=== PATIENT | male | born 1940 | race Caucasian/White ===

== ENCOUNTER 2017-02-21 11:13 | Inpatient (IN) | payer OTHER ==
--- NOTE | ~2017-02-21 | CONSULT ---
Radiation Oncology Consult [id number] [place]. [address] NAME: ANKUR TRIMBLE : 41 STATUS : DIS IN PAT#: [id number] AGE: 76 ADM/REG DATE : 02/21/17 MR#: [id number] REPORT SERV DATE: 03/01/17 DICTATED BY: EUGENE LENNON DATE: 02/27/17 REPORT STATUS : Draft TRANSCRIBED BY: MODYue DATE: 02/27/17 RADIATION ONCOLOGY CONSULTATION DIAGNOSIS: Stage IV T4 N3 M1b left lower lobe non-small cell lung cancer. HISTORY OF PRESENT ILLNESS: This is a very pleasant 76-year-old male, who presented with recurrent pneumonias. Ultimately, imaging was obtained and demonstrated left lower lobe mass. The patient underwent a PET-CT which demonstrated left lower lobe mass with mediastinal adenopathy in a single oligometastasis to the liver. MRI brain was negative. The patient was seen in consultation by Dr. Forman, where he was noted to have severe dysphagia. He has also noted to have a moderate pericardial effusion. He was admitted on 02/21/2017 to expedite his workup with a biopsy. He underwent bronchoscopy yesterday by Dr. Navarro. Pathology is pending. The preliminary pathology is notable for non-small cell lung cancer. He underwent a pericardial window by Dr. Olivas with cytology was negative for malignancy. I am consulted to discuss radiation to his chest. At today's visit, the patient continues to have severe dysphagia. He is able to keep down mostly liquids. He has lost a fair amount of weight since this began. He continues to have dyspnea on exertion. He denies shortness of breath at rest. He denies any hemoptysis or chest pain. He denies headaches, new neurologic symptoms, or bone pain. He reports his bowel and bladder are within normal limits. He denies fevers, chills, night sweats. PAST MEDICAL HISTORY: 1. History of tobacco abuse. 2. COPD. 3. CAD. 4. Hyperlipidemia. 5. Hypertension. REVIEW OF SYSTEMS: Notable for 10 pound weight loss over the past several months. Remainder of review of systems is negative. Pertinent positives are noted in the HPI. MEDICATIONS: Medication reconciliation has been reviewed and discussed. Please refer to EMR. ALLERGIES: NO KNOWN DRUG ALLERGIES. SOCIAL HISTORY: The patient is retired and does odd jobs including carpentry work. He smokes a pack per day for 60 years. He denies alcohol or illicit drug use. He quit smoking last year. FAMILY HISTORY: Family history is notable for lung cancer. His father of heart disease. Radiation Oncology Consult [address] [address] NAME: ANKUR TRIMBLE : 41 STATUS : DIS IN PAT#: [id number] AGE: 76 ADM/REG DATE : 02/21/17 MR#: [id number] REPORT SERV DATE: 03/01/17 DICTATED BY: EUGENE LENNON DATE: 02/27/17 REPORT STATUS : Draft TRANSCRIBED BY: JORDAN DATE: 02/27/17 PHYSICAL EXAMINATION: ECOG performance status of 2. Pain score 0/10. VITAL SIGNS: Temp 97.5, respirations 20, O2 saturation 99% on room air. GENERAL: Well-developed 76-year-old male accompanied by his . He is lying comfortably in hospital bed. HEENT: Normocephalic. Extraocular movements intact. Moist mucous membranes. LYMPHATICS: No supraclavicular or cervical lymphadenopathy. RESPIRATORY: Nonlabored breathing. No audible wheezing. GI: Soft, nontender, nondistended. EXTREMITIES: No edema. Normal range of motion. NEURO: Cranial nerves intact. Gait within normal limits. PSYCH: Verbalized understanding of our discussion. Demonstrates appropriate insight. IMAGING: I personally reviewed the PET-CT which shows left lower lobe locally advanced non- small cell lung cancer. There was an oligometastases to the liver. PATHOLOGY: Preliminary pathology is notable for a non-small cell lung cancer in the left lower lobe. ASSESSMENT AND PLAN: A 76-year-old male with newly diagnosed oligometastatic stage IV T4 N3 M1 non-small cell lung cancer. I am consulted to discuss radiation. I discussed his two approaches including palliative radiation to his chest to alleviate his esophageal compression. I have discussed the case with Dr. Forman. We also offered an aggressive approach with chemoradiation to the left lower lobe to a full course. If he has a positive response, we would consider aggressive therapy locally to the liver. I discussed both of these options with the patient. I discussed the details and logistics of daily radiation including potential, acute, and long-term toxicities. After a very thorough discussion of the benefits and risks, including but not limited to, esophageal stricture and radiation pneumonitis, the patient has agreed to proceed forward. He is in favor of an aggressive approach. I will plan a CT simulation on Saturday in the morning with plans to initiate radiation next Saturday in coordination with Dr. Forman. I appreciate the opportunity to take part in this patient's care. JKENNA/JORDAN Eugene Lennon MD / [id number] CC: Jhonny Navarro M.D. Radiation Oncology Consult [address] [address] NAME: ANKUR TRIMBLE : 41 STATUS : DIS IN PAT#: [id number] AGE: 76 ADM/REG DATE : 02/21/17 MR#: [id number] REPORT SERV DATE: 03/01/17 DICTATED BY: EUGENE LENNON DATE: 02/27/17 REPORT STATUS : Draft TRANSCRIBED BY: JORDAN DATE: 02/27/17 Elsy Aguayo MD James Headrick Jr., M.D. Benjamin R Nadeau, MD
--- NOTE | ~2017-02-21 | HP ---
History And Physical [id number] [facility] [place]. [address] NAME: ANKUR TRIMBLE : 41 STATUS : ADM IN PAT#: [id number] AGE: 76 ADM/REG DATE : 02/21/17 MR#: [id number] REPORT SERV DATE: 02/21/17 DICTATED BY: KEL SCHNEIDER DATE: 02/21/17 REPORT STATUS : Draft TRANSCRIBED BY: MODL DATE: 02/21/17 DATE OF ADMISSION: 02/21/2017 CHIEF COMPLAINT: Brought in from the office for multiple issues including dysphagia and tachycardia. HISTORY OF PRESENT ILLNESS: This is a very pleasant 76-year-old male, who has been following with Dr. Forman for workup of a left lower lobe lung mass. He previously had recurrent pneumonias and ultimately imaging showed a left lower lobe lung mass. He had a PET scan last week, which was consistent with stage IV disease with mediastinal adenopathy and liver metastases. He also had an echocardiogram which showed an EF of 50%, although he did have a heart rate in the 170s at that time. Over the past several days, he has had worsening of dysphagia. He says when he tries to swallow food it does get stuck. It is painful when it gets stuck and he has been vomiting up what he has been taking in including liquids over the past two days. He denies fevers, chills, any issues with urination including dysuria. He denies diarrhea. He had a bowel movement yesterday. He has had difficulty taking in any p.o. Had two sips of coffee this morning and has been noted some complaints of weakness per family. REVIEW OF SYSTEMS: The patient has had about a 10-pound weight loss in the past few months. Full review of systems was obtained and is negative with the exception of above HPI. PAST MEDICAL HISTORY: Includes coronary artery disease with a stent placed in 1998, hyperlipidemia, hypertension. SOCIAL HISTORY: He is a previous smoker, although does not actively smoke. His is present. He does not drink alcohol regularly. HOME MEDICATION: List is pending at this time, although he has not been able to swallow pills. FAMILY HISTORY: Denies any history of lung disease or cancer. PHYSICAL EXAMINATION: VITAL SIGNS: Heart rate is currently 131 with atrial fibrillation on EKG, temperature 97.5, respiratory rate 22, saturating 99% on room air, blood pressure 128/77. GENERAL: This is a very pleasant male, who is 76 years old, who appears stated age. He is in no acute distress. Alert and oriented x3, although mildly hard of hearing. HEENT: Extraocular muscles are intact. Sclerae are anicteric. Pupils equal, round, and reactive to light. NECK: Supple. LUNGS: Clear to auscultation bilaterally, although there are some mild rales at the left lower lobe. He does not have any expiratory wheezing. He has normal effort. CARDIAC: Irregularly irregular with tachycardia in the 130s. He has no appreciable murmur. ABDOMEN: Soft, nontender, and nondistended with no palpable mass. History And Physical [address] [address] NAME: ANKUR TRIMBLE : 41 STATUS : ADM IN [facility]#: [id number] AGE: 76 ADM/REG DATE : 02/21/17 MR#: [id number] REPORT SERV DATE: 02/21/17 DICTATED BY: KEL SCHNEIDER DATE: 02/21/17 REPORT STATUS : Draft TRANSCRIBED BY: JORDAN DATE: 02/21/17 EXTREMITIES: Lower extremities are warm and well perfused with no edema. NEURO: Cranial nerves 2 through 12 are grossly intact. Face is symmetric. Tongue is midline. PSYCHIATRIC: The patient is cooperative and appropriate. LABORATORY DATA: Pending at this time. Recent imaging includes a PET-CT from 02/14/2017, which shows impression findings consistent with, 1. Stage IV lung cancer, large 7.2 cm central left hilar obstructing FDG-avid mass involving both the upper and lower hilum causing severe thinning and attenuation of the left pulmonary artery and central upper and lower lobe bronchi consistent with primary lung carcinoma. 2. 3.4 x 3.5, mass-like consolidation in the left lateral lung base which may represent a component of carcinoma versus infection. There is adjacent 4.3 x 3.0 necrotic consolidation in the left lower central lobe with small left pleural effusion. 3. FDG-avid julianna spread of disease involving right paratracheal and subcarinal station consistent with N3 disease. No supraclavicular adenopathy. 4. Solitary distant metastases in the medial left liver. 5. Incidentals include three-vessel coronary artery disease and/or stenting, small pericardial effusion, naoteacr-[id number]-mtwsgk aortoiliac atherosclerotic disease, mild subpleural pulmonary fibrosis. ASSESSMENT AND PLAN: This is a 76-year-old male with suspected stage IV lung carcinoma and recent dysphagia, admitted with atrial fibrillation and dehydration. 1. Stage IV lung cancer. The patient will undergo bronchoscopy with Dr. Navarro today for definitive diagnosis. Likely the patient will need Radiation Oncology consultation. Once biopsy has been obtained, Dr. Forman will follow along with us to continue workup. 2. Dysphagia. Given his bulk of disease in his mediastinum concerning for possible obstruction, we will consult GI given his inability to keep anything down. The patient may benefit from PEG tube until radiation has time to work. In the interim, we will provide IV fluids. 3. Atrial fibrillation with rapid ventricular response. The patient will be moved to telemetry bed. Diltiazem drip has been ordered. Dr. Coburn, Mr. Trimble's gasser machine operator has been notified. 4. Medial pericardial effusion without evidence of tamponade on echocardiogram. Again, Dr. Coburn can weigh in on if any further imaging needs to be obtained. 5. History of coronary artery disease, hyperlipidemia, and hypertension. We will continue the patient's home medication once an accurate list has been obtained. 6. Possible obstruction due to lung mass. We will have a bronchoscopy with Dr. Navarro and may need radiation therapy to help with this. 7. DVT prophylaxis will be held at this time pending procedures. 8. Code status. The patient wishes to be a limited code status. He does not want intubation or CPR, although he would be willing to try noninvasive ventilation. History And Physical [address] [address] NAME: ANKUR TRIMBLE Buzz : 41 STATUS : ADM IN PAT#: [id number] AGE: 76 ADM/REG DATE : 02/21/17 MR#: [id number] REPORT SERV DATE: 02/21/17 DICTATED BY: KEL SCHNEIDER DATE: 02/21/17 REPORT STATUS : Draft TRANSCRIBED BY: JORDAN DATE: 02/21/17 HOUSTON/JORDAN Kel Schneider MD / [id number] CC: Marina Florez Wendy A
--- NOTE | ~2017-02-21 | EGD ---
EGD REPORT [facility] [address] [address] NAME: KE TRIMBLE : 41 STATUS : ADM IN PAT#: [id number] AGE: 76 ADM/REG DATE : 02/21/17 MR#: [id number] REPORT SERV DATE: 02/26/17 DICTATED BY: RADHA STEVENS DATE: 02/26/17 REPORT STATUS : Draft TRANSCRIBED BY: [facility] DATE: 02/26/17 Pulmonology Patient Name: Ke Trimble. Procedure Date: 02/26/2017 12:49 PM Date of : 1940 Attending MD: ROSARIO STEVENS MD Procedure Date No Time: 02/26/2017 Procedure: EBUS Indications: Suspected Stage IV lung cancer Providers: ROSARIO STEVENS MD Referring MD: FLORI VICKERS JR., MD Medicines: Lidocaine 2% 20 mL Complications: No immediate complications Procedure: Pre-Anesthesia Assessment: - ASA Grade Assessment: III - A patient with severe systemic disease. - A History and Physical has been performed. Patient meds and allergies have been reviewed. The risks and benefits of the procedure and the sedation options and risks were discussed with the patient. All questions were answered and informed consent was obtained. Patient identification and proposed procedure were verified prior to the procedure by the physician and the nurse in the pre-procedure area in the procedure room. Mental Status Examination: alert and oriented. Airway Examination: normal oropharyngeal airway. CV Examination: RRR, no murmurs, no S3 or S4. ASA Grade Assessment: IV - A patient with severe systemic disease that is a constant threat to life. After reviewing the risks and benefits, the patient was deemed in satisfactory condition to undergo the procedure. The anesthesia plan was to use general anesthesia. Immediately prior to administration of medications, the patient was re-assessed for adequacy to receive sedatives. The heart rate, respiratory rate, oxygen saturations, blood pressure, adequacy of pulmonary ventilation, and response to care were monitored throughout the procedure. The physical status of the patient was re-assessed after the procedure. After obtaining informed consent, the Bronchoscope was introduced through the mouth, via the endotracheal tube (the patient was intubated for the procedure) and advanced to the tracheobronchial tree. the BF [id number] was introduced through the and advanced to the. Findings: The endotracheal tube is in good position. The visualized portion of the EGD REPORT [address] [address] NAME: KE TRIMBLE : 41 STATUS : ADM IN [facility]#: [id number] AGE: 76 ADM/REG DATE : 02/21/17 MR#: [id number] REPORT SERV DATE: 02/26/17 DICTATED BY: RADHA STEVENS DATE: 02/26/17 REPORT STATUS : Draft TRANSCRIBED BY: [employer] DATE: 02/26/17 trachea is of normal caliber. The bryan is sharp. The tracheobronchial tree was examined to at least the first subsegmental level. LLL tumor noted see pictures EBUS TBNA of lymph node level 7 x 6 passes for cytology EBUS TBNA of left lung mass x 6 passes for cytology Brushings were obtained in the left mainstem bronchus of the lung and sent for routine cytology. One sample was obtained. Endobronchial biopsies were performed in the left mainstem bronchus of the lung using a forceps and sent for histopathology examination. Two samples were obtained. Bronchoalveolar lavage was performed in the left lower lobe of the lung and sent for routine cytology. 30 mL of fluid were instilled. 20 mL were returned. The return was blood-tinged. Impression: Rapid On-Site Evaluation (BRYAN): Preliminary cytology is POSITIVE for malignancy, non small cell lung cancer. (final results are pending). Recommendation: - Await test results. - Chest X-ray post-procedure. - Patient to go intubated to Interventional Radiology for PEG tube placement. Attending Participation: I personally performed the entire procedure. ROSARIO STEVENS MD 02/26/2017 2:01 PM This report has been signed electronically. Number of Addenda: 0 Note Initiated On: 02/26/2017 12:49 PM [address] [address]
--- NOTE | ~2017-02-21 | DS ---
Discharge Summary [facility] [address] [place]. [address] NAME: ANKUR TRIMBLE : 41 STATUS : DIS IN PAT#: [id number] AGE: 76 ADM/REG DATE : 02/21/17 MR#: [id number] REPORT SERV DATE: 03/01/17 DICTATED BY: FLORI PARADA II DATE: 02/28/17 REPORT STATUS : Draft TRANSCRIBED BY: MODL DATE: 02/28/17 ADMISSION DATE: 02/21/2017 DISCHARGE DATE: 02/28/2017 DISCHARGE DIAGNOSES: 1. Presumed metastatic lung cancer. 2. Ulcerated esophageal stricture amenable to dilatation with dysphagia. 3. Paroxysmal atrial fibrillation. 4. Pericardial effusion, status post window. 5. Coronary artery disease, status post stent. CONSULTS: 1. Halie Olivas M.D., with Cardiology. 2. Flori Olivas M.D., with Cardiothoracic Surgery. 3. Phil Mendoza MD, with GI. 4. Dr. Estevez with Surgery. 5. Jhonny Navarro M.D. PROCEDURES: 1. Transesophageal echocardiogram with subxiphoid pericardial window with pericardial biopsy and local nerve block by Dr. Olivas. 2. Upper endoscopy showing ulcerated esophageal stricture by Dr. Mendoza. 3. Bronchoscopy with EBUS by Dr. Navarro. BRIEF HISTORY OF PRESENT ILLNESS: The patient is a 76-year-old male with the above history who presented to [facility] due to dysphagia and tachycardia. For detailed history and physical examination, please see Dr. Schneider's note from 02/21/2017. HOSPITAL COURSE: On admission, the patient was in rapid AFib and Cardiology was consulted. Given the patient's dysphagia, he was started on IV metoprolol and amiodarone drip. This controlled his heart rate quite well. He had a recent echo demonstrated moderate-size pericardial effusion concerning for malignant effusion. So Dr. Olivas was consulted and the patient subsequently underwent DAYSI with subxiphoid pericardial window. The fluid from that actually returned negative for malignancy. GI was consulted for an upper endoscopy which showed the ulcerated esophageal stricture which was not amenable to dilatation. Given the patient's dysphagia, the patient was scheduled for PEG. However, GI was unable to do this and Interventional Radiology attempted, however, could not pass an OG tube. So the procedure was aborted. Surgery was consulted for possible surgical PEG. However, by that time, the patient was actually tolerating Ensure, full liquids, and essentially able to maintain an adequate caloric intake. So, Dr. Estevez and Dr. Forman recommended holding off on doing PEG at this point procedure and going forward with chemo and radiation. Dr. Lennon was also consulted and is planning simulation tomorrow and radiation to start next week. The patient will follow with Dr. Forman to initiate chemotherapy as an outpatient next week. The patient's heart rate is stable, back in sinus rhythm, and will be converted over to oral metoprolol and amiodarone. The patient will remain on full-dose aspirin and hold off on anticoagulation at this time. The patient also Discharge Summary [address] [place]. [address] NAME: ANKUR TRIMBLE : 41 STATUS : DIS IN PAT#: [id number] AGE: 76 ADM/REG DATE : 02/21/17 MR#: [id number] REPORT SERV DATE: 03/01/17 DICTATED BY: FLORI PARADA II DATE: 02/28/17 REPORT STATUS : Draft TRANSCRIBED BY: JORDAN DATE: 02/28/17 underwent bronch with EBUS by Dr. Navarro as mentioned above which had gross positive malignancy. Final path is still pending. Overall, the patient is actually doing quite well, considering labs and vitals are stable. So given PEG tube is on hold, we will go ahead and let the patient go home and follow up as an outpatient for further chemo and radiation. DISCHARGE MEDICATIONS: 1. Vitamin C 500 mg p.o. daily. 2. Vitamin E 400 units p.o. daily. 3. Vitamin D 1000 units p.o. daily. 4. Aspirin 325 mg p.o. daily. 5. Pravachol 40 mg p.o. at bedtime. 6. Percocet 5 mg p.o. q.6 p.r.n. 7. Amiodarone 200 mg p.o. daily. 8. Lopressor 12.5 mg p.o. b.i.d. DISCHARGE INSTRUCTIONS: 1. The patient will follow with Dr. Forman next week. 2. The patient will follow up with Dr. Lennon in Radiation Oncology for CT sim on Saturday and to start radiation next week. TYREE/JORDAN Flori Parada II, MD / [id number] CC: Marina Florez
--- NOTE | ~2017-02-21 | OP ---
Record Of Operation [facility] [address] [place]. [address] NAME: ANKUR TRIMBLE : 42 STATUS : ADM IN PAT#: [id number] AGE: 76 ADM/REG DATE : 02/21/17 MR#: [id number] REPORT SERV DATE: 02/21/17 DICTATED BY: FLORI OLIVAS JR. DATE: 02/21/17 REPORT STATUS : Draft TRANSCRIBED BY: MODL DATE: 02/21/17 DATE OF PROCEDURE: 02/21/2017 PREOPERATIVE DIAGNOSES: Metastatic lung cancer with enlarging pericardial effusion and prepericardial tamponade, COPD, atrial fibrillation, and hypertension. POSTOPERATIVE DIAGNOSES: Metastatic lung cancer with enlarging pericardial effusion and prepericardial tamponade, COPD, atrial fibrillation, and hypertension. NAME OF OPERATION: Transesophageal echocardiogram, subxiphoid pericardial window with pericardial biopsy, local nerve block. SURGEON: Flori Olivas M.D. WEB EDITOR: Neptali Nichole. RESIDENT SURGEON: Daron Dickens M.D. ANESTHESIA: General endotracheal. FINDINGS: The patient was noted to have resistance in his distal 3rd of his esophagus. We can get the transesophageal probe down to about 30 cm but could not see the ventricular portions on exam. Only his aorta in the upper portion of the heart. Given the resistance and his swallowing difficulties, we did not push any further. Upon entering the pericardium, it was thin and normal looking. There was serous fluid that was evacuated. There was only about 200 mL within the pericardial space. There was some change in his blood pressure. The fluid was sent for cultures and cytology. The pericardial tissue was sent for permanent analysis. DETAILS OF OPERATION: After adequate general anesthesia, the patient was intubated. A transesophageal echocardiogram was attempted to be performed but was incomplete given the lack of availability getting the scope distal enough of the esophagus. The patient's neck and chest were then prepped and draped routine sterile fashion. A small incision was made overlying the xiphoid process. Dissection was carried down and into the subxiphoid space. The pericardium was identified and opened with a knife. Serous fluid was evacuated. 200 mL was removed. The fluid was sent for cultures and cytology. A section of anterior pericardium was then excised. A 19-[place] Hay drain was placed. The fascia was then closed with interrupted Vicryl sutures. The skin was closed with running monofilament suture. A Dermabond dressing was applied. The procedure was terminated at this point. The patient tolerated the procedure well, was taken back to recovery room in stable condition. CARLY/JORDAN Flori Record Of [address] [facility] [address] NAME: ANKUR TRIMBLE : 42 STATUS : ADM IN PAT#: [id number] AGE: 76 ADM/REG DATE : 02/21/17 MR#: [id number] REPORT SERV DATE: 02/21/17 DICTATED BY: FLORI OLIVAS JR. DATE: 02/21/17 REPORT STATUS : Draft TRANSCRIBED BY: JORDAN DATE: 02/21/17 Deisy Jorgensen M.D. / [id number] CC: Jhonny Navarro M.D.
--- NOTE | ~2017-02-21 | CN ---
Consultation Report [facility] [address] [place]. [address] NAME: ANKUR TRIMBLE : 42 STATUS : ADM IN [facility]#: [id number] AGE: 76 ADM/REG DATE : 02/21/17 MR#: [id number] REPORT SERV DATE: 02/27/17 DICTATED BY: RODOLFO ESTEVEZ DATE: 02/26/17 REPORT STATUS : Draft TRANSCRIBED BY: MODL DATE: 02/26/17 SURGICAL CONSULT NOTE DATE OF CONSULTATION: 02/26/2017 ATTENDING SURGEON: Rodolfo Estevez MD. REASON FOR CONSULT: Dysphagia, request for gastrostomy tube. HISTORY OF PRESENT ILLNESS: The patient is a 76-year-old male, admitted to the hospital on 02/21/2017 of this month with complaint of progressively worsening dysphagia in addition to tachycardia. He has recently undergone workup for a left lung mass which has unfortunately revealed evidence of stage IV disease including liver and mediastinal metastasis. On the 02/21/2017, he underwent a pericardial window by Dr. Olivas, in addition to an EBUS. His pericardial drain has been removed at this point. GI attempted PEG tube placement. However, they found evidence of esophageal obstruction secondary to an ulcerated stricture which was not amenable to dilation. He also has some degree of compression secondary to extrinsic disease as well. Because of this, Interventional Radiology planned to place a PEG tube today, however, an NG tube could not traverse the area of stricture. For that reason, we have been consulted for gastrostomy tube placement. Of note, the patient is DNR/DNI. PAST MEDICAL HISTORY: Includes atrial fibrillation, coronary artery disease. He had stents placed in 1998, hyperlipidemia, hypertension, and left lung cancer. PAST SURGICAL HISTORY: Includes pericardial window on 02/21/[address] Olivas and EBUS on 02/21/2017. MEDICATIONS: Home medications include aspirin, Lotensin, and Pravachol. SOCIAL HISTORY: He is a previous smoker, is not currently smoking. He denies alcohol or recreational drug use. FAMILY HISTORY: He denies history of lung disease or cancer. REVIEW OF SYSTEMS: A 12-point review of systems was obtained and found to be negative aside from that listed in HPI. PHYSICAL EXAMINATION: VITAL SIGNS: The patient is afebrile and hemodynamically stable. He is currently on room air. GENERAL: Alert, pleasant male in no acute distress. HEENT: He has moist mucous membranes. CARDIOVASCULAR: Regular rate with a regular rhythm. PULMONARY: Decreased breath sounds on the left. Consultation Report [place] [address] [facility] [place]. [address] NAME: ANKUR TRIMBLE : 42 STATUS : ADM IN [facility]#: [id number] AGE: 76 ADM/REG DATE : 02/21/17 MR#: [id number] REPORT SERV DATE: 02/27/17 DICTATED BY: RODOLFO ESTEVEZ DATE: 02/26/17 REPORT STATUS : Draft TRANSCRIBED BY: MODYue DATE: 02/26/17 ABDOMEN: Soft, nondistended. He does have a recent pericardial window incision which is healing well. His pericardial drain has been removed. EXTREMITIES: Extremities are perfused. DATA: White blood cell count is 10, hematocrit is 39, platelets 182, creatinine 0.8, INR 1.2. ASSESSMENT AND PLAN: This is a 76-year-old male with stage IV lung cancer and dysphagia with esophageal obstruction. Gastrostomy seems appropriate in this situation. He will need to undergo general anesthesia for this procedure so any medical optimization prior to the operating room will greatly be appreciated. I recommend hold all anticoagulants including aspirin. We will likely plan for the operating room on . The patient has been discussed with Dr. Estevez. DICTATED BY: Ele Wade MD JR/JORDAN Rodolfo Estevez MD / [id number] CC: Marina Florez
--- NOTE | ~2017-02-21 | CN ---
Consultation Report [facility] [address] [place]. [address] NAME: ANKUR TRIMBLE : 42 STATUS : ADM IN [facility]#: [id number] AGE: 76 ADM/REG DATE : 02/21/17 MR#: [id number] REPORT SERV DATE: 02/21/17 DICTATED BY: FLORI OLIVAS JR. DATE: 02/21/17 REPORT STATUS : Draft TRANSCRIBED BY: MODYue DATE: 02/21/17 CONSULTATION NOTE DATE OF CONSULTATION: 02/21/2017 REASON FOR CONSULTATION: Moderate pericardial effusion and lung cancer. BRIEF HISTORY: This is a 76-year-old gentleman, who was diagnosed with advanced stage non- small cell lung cancer. He has extensive involvement of the left lung, mediastinal nodes and likely a metastatic lesion in the liver. He had a small pericardial effusion seen earlier on imaging studies. A recent echocardiogram demonstrated a moderate-sized pericardial effusion with significant impingement on the function of the heart. He was brought back into the hospital for this reason. The patient was also starting to feel worse. More specifically, he continued to have anorexia, but now increased dyspnea, shortness of breath, and lethargy. He is currently on Oncology floor and hemodynamically stable. PAST MEDICAL HISTORY: Significant for COPD; atrial fibrillation; coronary artery disease, status post previous percutaneous catheter intervention; hypertension; hyperlipidemia; previous inguinal hernia repair; and previous traumatic injury to his ankle. MEDICATIONS: Pravastatin 40 mg at bedtime, aspirin 325 mg daily, benazepril 20/12.5 mg daily, multivitamin daily, vitamin D supplement daily, vitamin C supplement daily. ALLERGIES: NO KNOWN DRUG ALLERGIES. SOCIAL HISTORY: The patient smoked a pack per day for 60 years. He denies regular alcohol or drug use. He just recently stopped smoking. FAMILY HISTORY: Significant for lung cancer. REVIEW OF SYSTEMS: Significant for above-mentioned problems in the history of present illness. All other systems are negative. A 12-point system review was performed. PHYSICAL EXAMINATION: GENERAL: This is a 76-year-old gentleman, easily awakened, who is sleeping in bed. HEAD, EYES, EARS, NOSE, THROAT: Negative. Pupils are equal and reactive to light, with sclerae intact. NECK: Supple. No lymphadenopathy. CARDIOVASCULAR: Revealed no murmurs or rubs. LUNGS: Had decreased breath sounds in the left chest. ABDOMEN: Soft, nontender. EXTREMITIES: Showed no significant edema. Consultation Report [facility] [address] [place]. [address] NAME: ANKUR TRIMBLE : 42 STATUS : ADM IN PAT#: [id number] AGE: 76 ADM/REG DATE : 02/21/17 MR#: [id number] REPORT SERV DATE: 02/21/17 DICTATED BY: FLORI OLIVAS JR. DATE: 02/21/17 REPORT STATUS : Draft TRANSCRIBED BY: MODYue DATE: 02/21/17 NEUROLOGIC: Exam is grossly intact. SKIN: Warm and dry. PSYCH: Exam is negative. DATA: The patient has an MRI of the brain which shows no evidence of metastatic disease. A PET-CT scan shows the pericardial effusion along with an extensive involvement of the left hilar structures by this lung cancer with mediastinal lymphadenopathy that is also positive. There was also a lesion in the liver. Echocardiogram demonstrates moderate pericardial effusion with left ventricular ejection fraction estimated at 50%. There was a large echodense lesion adjacent to right ventricle likely representing malignancy. There was no significant valvular or structural heart disease. His height was 65 inches, weight 135 pounds, heart rate was 120, blood pressure 130/66. Problem list: 1. Metastatic lung cancer. 2. Pericardial effusion with pre tamponade physiology. 3. COPD. 4. Coronary artery disease. 5. Anorexia and protein calorie malnutrition. PLAN: This is a 76-year-old gentleman, who currently does not wish treatment for his lung cancer, but wants to be treated for comfort measures. He is certainly starting having clinical and physical impacts from the significant pericardial effusion. He will undergo a drainage procedure for this. The patient's family understands this that we will not treat his cancer, but would hopefully improve his quality of life. We will try a subxiphoid pericardial window approach. He understands the risks, benefits, expected outcome of the procedure. The patient is willing to consider any temporary measures during operation if the heart were to defibrillate or arrest. There was a significant mediastinal shift from the atelectasis of the left lung, especially if the heart is deviated to the left chest. It still should be able to reached through a subxiphoid approach. If we are unable to get to it, then we would embark on a left thoracoscopy to get to that area. CARLY/JORDAN Flori Olivas Jr., M.D. / [id number] CC: Marina Florez M.D.
--- NOTE | ~2017-02-21 | EGD ---
EGD REPORT [facility] [address] [place] [address] NAME: KE TRIMBLE : 42 STATUS : ADM IN PAT#: [id number] AGE: 76 ADM/REG DATE : 02/21/17 MR#: [id number] REPORT SERV DATE: 02/25/17 DICTATED BY: PHIL TREVIÑO DATE: 02/25/17 REPORT STATUS : Draft TRANSCRIBED BY: [facility] DATE: 02/25/17 Endoscopy Center Patient Name: Ke Trimble Date of : 1940 Attending MD: PHIL TREVIÑO MD Procedure Date No Time: 02/25/2017 Procedure: Upper GI endoscopy Indications: Dysphagia Medicines: Monitored Anesthesia Care Complications: No immediate complications. Estimated blood loss: None. Procedure: After obtaining informed consent, the endoscope was passed under direct vision. Throughout the procedure, the patient's blood pressure, pulse, and oxygen saturations were monitored continuously. The GIF [id number] [id number] was introduced through the mouth, and advanced to the second part of duodenum. The upper GI endoscopy was technically difficult and complex due to stenosis. The patient tolerated the procedure fairly well. Findings: A moderate stenosis measuring 2 cm (in length) x 5 mm (inner diameter) was found 30 cm from the incisors and was traversed only with the XP scope... the adult EGD scope could not pass. This area had multiple ulcerations above and at the stenosis, but the mucosa was normal distal to this. Biopsies were taken with a cold forceps for histology. Estimated blood loss was minimal. The entire examined stomach was normal. The examined duodenum was normal. The cardia and gastric fundus were normal on retroflexion. Impression: - Ulcerated esophageal stricture. Biopsied. Recommendation: - Return patient to hospital [facility] for ongoing care. - Await pathology results. - Use Protonix (pantoprazole) 40 mg IV BID. Procedure Code(s): --- Professional --- 42461, Esophagogastroduodenoscopy, flexible, transoral; with biopsy, single or multiple Diagnosis Code(s): --- Professional --- K22.2, Esophageal obstruction R13.10, Dysphagia, unspecified EGD REPORT [facility] [address] [place] [address] NAME: KE TRIMBLE : 41 STATUS : ADM IN [facility]#: [id number] AGE: 76 ADM/REG DATE : 02/21/17 MR#: [id number] REPORT SERV DATE: 02/25/17 DICTATED BY: PHIL TREVIÑO DATE: 02/25/17 REPORT STATUS : Draft TRANSCRIBED BY: [employer] DATE: 02/25/17 CPT copyright 2013 [employer]. All rights reserved. The codes documented in this report are preliminary and upon home administrator review may be revised to meet current compliance requirements. Phil Treviño MD PHIL TREVIÑO MD 02/25/2017 9:25 AM This report has been signed electronically. Number of Addenda: 0 Note Initiated On: 02/25/2017 8:52 AM Scope Withdrawal Time 0 hours 0 minutes 0 seconds [address] [place] [address]
--- NOTE | ~2017-02-21 | CN ---
Consultation Report [facility] [address] [place]. [address] NAME: ANKUR TRIMBLE : 42 STATUS : ADM IN PAT#: [id number] AGE: 76 ADM/REG DATE : 02/21/17 MR#: [id number] REPORT SERV DATE: 02/22/17 DICTATED BY: MP FUENTES DATE: 02/22/17 REPORT STATUS : Draft TRANSCRIBED BY: MODL DATE: 02/22/17 GI CONSULTATION DATE OF CONSULTATION: 02/22/2017 REASON FOR CONSULTATION: Evaluation and management of patient's dysphagia. HISTORY OF PRESENT ILLNESS: Mr. Trimble is a 76-year-old male patient who was admitted to [facility] on 02/21/2017. The chief complaint was "multiple issues" which included dysphagia, tachycardia. He is being followed by Dr. Forman for workup of a left lower lobe lung mass. He has a history of previously recurrent pneumonias that ultimately ended up with imaging being positive for a left lower lobe lung mass. He did obtain a PET scan, which did show stage IV disease with mediastinal adenopathy, as well as liver metastasis. He has had since what he states as last Saturday02/16/2017 worsening of dysphagia, everything that he tries to swallow gets stuck, it is painful for him. He states he has had regurgitation and vomiting over the past few days. He states that every now and then some water can go down, but typically, it comes right back up. He has not had really any associated fever, chills. No diarrhea, melena, or hematochezia. He states that he has lost some weight but cannot really quantify how much. He was seen yesterday by Cardiothoracic Surgery for moderate pericardial effusion. He underwent a pericardial window with pericardial biopsy. It was noted on that exam that they had resistance in the distal third of his esophagus and was unable to pass a transesophageal probe down. I have discussed the case with Dr. Forman who is requesting EGD for evaluation of: 1. Could a possible stent be replaced. 2. Could a traditional PEG tube be placed via endoscopy. 3. Evaluation for possible esophageal mass. I have discussed this with the patient as well as the patient's family, who is present at the bedside. We will plan on pursuing EGD in the morning. Risks, benefits, alternatives, complications were detailed for him to include, but not limited to risk of bleeding, perforation, infection, reaction to medications, as well as cardiac and pulmonary side effects. He is agreeable to proceed. PAST MEDICAL HISTORY: Positive for recent diagnosis of stage IV lung cancer with liver metastasis, dysphagia, hyperlipidemia, hypertension, and coronary artery disease with stents in the past. SOCIAL HISTORY: Previous smoker. No alcohol. No illicits. FAMILY HISTORY: Noncontributory from a GI standpoint. ALLERGIES: NO KNOWN ALLERGIES. HOME MEDICATIONS: Consist of Pravachol, vitamin E, vitamin C, Centrum multivitamin, aspirin, Consultation Report [place] [address] [place]. [address] NAME: ANKUR TRIMBLE : 42 STATUS : ADM IN [facility]#: [id number] AGE: 76 ADM/REG DATE : 02/21/17 MR#: [id number] REPORT SERV DATE: 02/22/17 DICTATED BY: MP FUENTES DATE: 02/22/17 REPORT STATUS : Draft TRANSCRIBED BY: JORDAN DATE: 02/22/17 Flonase, Mucinex, Levaquin, Prilosec, and ProAir HFA. REVIEW OF SYSTEMS: A 10-point review of systems has been obtained with pertinent positives being addressed in the history of present illness. PERTINENT LABORATORY DATA: Sodium is 142, potassium 4.4, BUN is 30, creatinine 1.38. White count 12.1, hemoglobin 13.1, hematocrit is 40.0, and platelet count 193 with an INR of 1.2. PHYSICAL EXAMINATION: VITAL SIGNS: Temperature is 97.4, pulse of 90, and respirations of 18, and blood pressure 138/80. NEURO: Reveals an alert, thin male, resting in bed, but no focal deficits. GENERAL: Cooperative, in no apparent acute distress. He is awake, alert, and oriented x3. NECK: No JVD. No palpable nodes. LUNGS: Decreased throughout with normal respiratory effort exhibited. CARDIOVASCULAR SYSTEM: Presently regular rate and rhythm. ABDOMEN: Soft and flat, nondistended and nontender with active bowel sounds. EXTREMITIES: No edema. Normal distal pulses. SKIN: Warm, dry, and intact. ASSESSMENT: 1. Dysphagia. Question if this could be related to extrinsic compression from adenopathy or could this be question esophageal mass. 2. Pericardial effusion, question malignancy. 3. Recent stage IV lung cancer diagnosis with metastatic disease to the liver on PET scan. 4. History of coronary artery disease, status post PCI. 5. Atrial fib with RVR, resolved status post pericardial window. PLAN: 1. N.p.o. after midnight, strict. 2. EGD tomorrow with Dr. Diaz to assess. 3. Hold his Lovenox. 4. Other recommendations to follow endoscopy. NIC/JORDAN Mp LLOYD Arita / [id number] CC: Consultation Report [address] [place]. [address] NAME: ANKUR TRIMBLE : 42 STATUS : ADM IN PAT#: [id number] AGE: 76 ADM/REG DATE : 02/21/17 MR#: [id number] REPORT SERV DATE: 02/22/17 DICTATED BY: MP FUENTES DATE: 02/22/17 REPORT STATUS : Draft TRANSCRIBED BY: MODL DATE: 02/22/17 Jhonny Navarro M.D. Elsy Aguayo
[~2017-02-21 11:13] MED LIST: ASAB PO; ASAEC PO; BEN25 PO; CENTRUM PO; CENTRUM SILVER PO; FLONASE NAS; LEVAQUIN750 MG PO; LOTENSIN HCT1 TA2 PO; MUCINEX1200 MG PO; PRAVACHOL40 MG PO; PRILO PO; PROAIR HFA INH; VITC500 PO; VITE PO
[2017-02-21 14:39] LABS: BASOPHILS 0.2 %; BASOPHILS ABSOLUTE 0.02 10/3/uL (0.0-0.16); EOSINOPHILS 1.3 %; EOSINOPHILS ABSOLUTE 0.11 10/3/uL (0.0-0.53); IMMATURE GRANULOCYTES 0.2 %; IMMATURE GRANULOCYTES ABSOLUTE 0.02 10/3/uL (0.0-0.11); LYMPHOCYTES 19.4 %; LYMPHOCYTES ABSOLUTE 1.63 10/3/uL (0.67-4.30); MEAN PLATELET VOLUME 9.4 fL (9.2-13.0); MONOCYTES 6.3 %; MONOCYTES ABSOLUTE 0.53 10/3/uL (0.21-1.20); NEUTROPHILS 72.6 %; NEUTROPHILS ABSOLUTE 6.08 10/3/uL (2.02-8.40); PLATELET COUNT 200 10/3/uL (150-400); RBC DISTRIBUTION WIDTH 14.6 % (12.0-16.0); WHITE BLOOD CELLS 8.4 10/3/uL (4.5-10.5)
[2017-02-21 14:41] LABS: HEMATOCRIT 40.1 % (40.0-51.0); HEMOGLOBIN 13.5 g/dL (13.6-17.8); MANUAL DIFF NO %; MEAN CORPUS HGB CONC 33.7 g/dL (32.0-36.0); MEAN CORPUSCULAR HEMOGLOB 27.3 pg (26.0-34.0); MEAN CORPUSCULAR VOLUME 81.2 fL (80-100); RED CELL COUNT 4.94 10/6/uL (4.7-6.1)
[2017-02-21 14:50] LABS: INTERNATIONAL NORMAL RATI 1.1 UNITS (-); PROTIME (NOT ORD) 14.4 SEC (12.0-14.5)
[2017-02-21 15:01] LABS: CHLORIDE, SERUM 107 MMOL/L (96-112); CO2 (CARBON DIOXIDE) 27 MMOL/L (24-34); CREATININE 1.31 MG/DL (0.70-1.30); GFR AFRICAN AMERICAN 61 ML/MIN (>=60); GFR NON AFRICAN AMERICAN 53 ML/MIN (>=60); GLUCOSE, SERUM 97 MG/DL (60-99); PHOSPHORUS, SERUM 2.9 MG/DL (2.5-4.5); SGOT(AST) 30 U/L (5-40); SGPT(ALT) 17 U/L (5-65); SODIUM, SERUM 143 MMOL/L (135-148); TOTAL BILIRUBIN 0.7 MG/DL (0-1.2); TOTAL PROTEIN 7.6 G/DL (6.0-8.5)
[2017-02-21 15:08] LABS: A/G RATIO 0.8 (0.7-1.9); ALBUMIN 3.4 G/DL (3.5-5.0); ALKALINE PHOSPHATASE 82 U/L (45-117); BUN (BLOOD UREA NITROGEN) 32 MG/DL (6-23); CALCIUM, SERUM 9.7 MG/DL (8.5-10.4); GLOBULIN 4.2 G/DL (2.5-4.1)
[2017-02-22 06:12] LABS: BASOPHILS 0 %; EOSINOPHILS 0 %; HEMOGLOBIN 13.1 g/dL (13.6-17.8); IMMATURE GRANULOCYTES 0.2 %; IMMATURE GRANULOCYTES ABSOLUTE 0.02 10/3/uL (0.0-0.11); LYMPHOCYTES 6.4 %; LYMPHOCYTES ABSOLUTE 0.78 10/3/uL (0.67-4.30); MEAN CORPUS HGB CONC 32.8 g/dL (32.0-36.0); MEAN CORPUSCULAR HEMOGLOB 26.8 pg (26.0-34.0); MEAN PLATELET VOLUME 9.6 fL (9.2-13.0); MONOCYTES 6.4 %; MONOCYTES ABSOLUTE 0.77 10/3/uL (0.21-1.20); NEUTROPHILS ABSOLUTE 10.55 10/3/uL (2.02-8.40); PLATELET COUNT 193 10/3/uL (150-400); RBC DISTRIBUTION WIDTH 14.5 % (12.0-16.0); RED CELL COUNT 4.88 10/6/uL (4.7-6.1)
[2017-02-22 06:17] LABS: INTERNATIONAL NORMAL RATI 1.2 UNITS (-); PROTIME (NOT ORD) 14.6 SEC (12.0-14.5)
[2017-02-22 06:22] LABS: MANUAL DIFF NO %; WHITE BLOOD CELLS 12.1 10/3/uL (4.5-10.5)
[2017-02-22 06:35] LABS: A/G RATIO 0.7 (0.7-1.9); ALBUMIN 3.2 G/DL (3.5-5.0); ALKALINE PHOSPHATASE 77 U/L (45-117); BUN (BLOOD UREA NITROGEN) 30 MG/DL (6-23); CALCIUM, SERUM 9.2 MG/DL (8.5-10.4); CHLORIDE, SERUM 107 MMOL/L (96-112); CO2 (CARBON DIOXIDE) 23 MMOL/L (24-34); CREATININE 1.38 MG/DL (0.70-1.30); GFR AFRICAN AMERICAN 58 ML/MIN (>=60); GFR NON AFRICAN AMERICAN 50 ML/MIN (>=60); GLOBULIN 4.4 G/DL (2.5-4.1); POTASSIUM, SERUM 4.4 MMOL/L (3.5-5.3); SGPT(ALT) 14 U/L (5-65); SODIUM, SERUM 142 MMOL/L (135-148); TOTAL BILIRUBIN 0.8 MG/DL (0-1.2); TOTAL PROTEIN 7.6 G/DL (6.0-8.5)
[2017-02-22 06:37] LABS: GLUCOSE, SERUM 184 MG/DL (60-99); SGOT(AST) 30 U/L (5-40)
[2017-02-22] MEDS ORDERED: VITC500 PO (19:15)
[2017-02-22] MEDS ORDERED: VITE PO (19:15)
[2017-02-22] MEDS ORDERED: VITAMIN D1000 UNI1 PO (19:16)
[2017-02-22] MEDS ORDERED: ASABAYER PO (19:16)
[2017-02-22] MEDS ORDERED: PRAVACHOL40 MG PO (19:21)
[2017-02-22] MEDS ORDERED: LOTENSIN HCT1 TA2 PO (19:21)
[2017-02-23 05:05] LABS: BASOPHILS 0.1 %; BASOPHILS ABSOLUTE 0.01 10/3/uL (0.0-0.16); EOSINOPHILS 0.9 %; EOSINOPHILS ABSOLUTE 0.11 10/3/uL (0.0-0.53); HEMATOCRIT 38.4 % (40.0-51.0); HEMOGLOBIN 12.9 g/dL (13.6-17.8); IMMATURE GRANULOCYTES 0.3 %; IMMATURE GRANULOCYTES ABSOLUTE 0.03 10/3/uL (0.0-0.11); LYMPHOCYTES 12.8 %; MEAN CORPUS HGB CONC 33.6 g/dL (32.0-36.0); MEAN CORPUSCULAR HEMOGLOB 27.3 pg (26.0-34.0); MEAN CORPUSCULAR VOLUME 81.4 fL (80-100); MONOCYTES 8.3 %; MONOCYTES ABSOLUTE 0.97 10/3/uL (0.21-1.20); NEUTROPHILS 77.6 %; NEUTROPHILS ABSOLUTE 9.08 10/3/uL (2.02-8.40); PLATELET COUNT 182 10/3/uL (150-400); RBC DISTRIBUTION WIDTH 14.6 % (12.0-16.0); RED CELL COUNT 4.72 10/6/uL (4.7-6.1); WHITE BLOOD CELLS 11.7 10/3/uL (4.5-10.5)
[2017-02-23 05:10] LABS: MANUAL DIFF NO %
[2017-02-23 05:18] LABS: CALCIUM, SERUM 9.1 MG/DL (8.5-10.4); CHLORIDE, SERUM 108 MMOL/L (96-112); CO2 (CARBON DIOXIDE) 25 MMOL/L (24-34); CREATININE 0.97 MG/DL (0.70-1.30); GFR AFRICAN AMERICAN 88 ML/MIN (>=60); GFR NON AFRICAN AMERICAN 76 ML/MIN (>=60); SODIUM, SERUM 143 MMOL/L (135-148)
[2017-02-23 05:21] LABS: BUN (BLOOD UREA NITROGEN) 17 MG/DL (6-23); GLUCOSE, SERUM 109 MG/DL (60-99)
[2017-02-23 05:25] LABS: INTERNATIONAL NORMAL RATI 1.2 UNITS (-); PROTIME (NOT ORD) 15.1 SEC (12.0-14.5)
[2017-02-25 05:02] LABS: BASOPHILS 0.1 %; BASOPHILS ABSOLUTE 0.01 10/3/uL (0.0-0.16); EOSINOPHILS 1.4 %; EOSINOPHILS ABSOLUTE 0.13 10/3/uL (0.0-0.53); HEMATOCRIT 36.3 % (40.0-51.0); HEMOGLOBIN 12.1 g/dL (13.6-17.8); IMMATURE GRANULOCYTES 0.2 %; IMMATURE GRANULOCYTES ABSOLUTE 0.02 10/3/uL (0.0-0.11); LYMPHOCYTES 13.1 %; LYMPHOCYTES ABSOLUTE 1.18 10/3/uL (0.67-4.30); MEAN CORPUS HGB CONC 33.3 g/dL (32.0-36.0); MEAN CORPUSCULAR HEMOGLOB 26.8 pg (26.0-34.0); MEAN CORPUSCULAR VOLUME 80.5 fL (80-100); MONOCYTES 7.5 %; MONOCYTES ABSOLUTE 0.68 10/3/uL (0.21-1.20); NEUTROPHILS 77.7 %; NEUTROPHILS ABSOLUTE 7.01 10/3/uL (2.02-8.40); PLATELET COUNT 181 10/3/uL (150-400); RBC DISTRIBUTION WIDTH 14.1 % (12.0-16.0); RED CELL COUNT 4.51 10/6/uL (4.7-6.1)
[2017-02-25 05:03] LABS: MANUAL DIFF NO %
[2017-02-25 05:06] LABS: INTERNATIONAL NORMAL RATI 1.1 UNITS (-); PROTIME (NOT ORD) 14.3 SEC (12.0-14.5)
[2017-02-25 05:19] LABS: CALCIUM, SERUM 9.2 MG/DL (8.5-10.4); CHLORIDE, SERUM 106 MMOL/L (96-112); CO2 (CARBON DIOXIDE) 23 MMOL/L (24-34); CREATININE 0.85 MG/DL (0.70-1.30); GFR AFRICAN AMERICAN 99 ML/MIN (>=60); GFR NON AFRICAN AMERICAN 85 ML/MIN (>=60); GLUCOSE, SERUM 111 MG/DL (60-99); SODIUM, SERUM 139 MMOL/L (135-148)
[2017-02-25 05:21] LABS: BUN (BLOOD UREA NITROGEN) 10 MG/DL (6-23)
[2017-02-26 11:39] LABS: BASOPHILS 0.1 %; BASOPHILS ABSOLUTE 0.01 10/3/uL (0.0-0.16); EOSINOPHILS 1.7 %; EOSINOPHILS ABSOLUTE 0.18 10/3/uL (0.0-0.53); HEMOGLOBIN 13.2 g/dL (13.6-17.8); IMMATURE GRANULOCYTES 0.2 %; IMMATURE GRANULOCYTES ABSOLUTE 0.02 10/3/uL (0.0-0.11); LYMPHOCYTES 10.8 %; LYMPHOCYTES ABSOLUTE 1.12 10/3/uL (0.67-4.30); MEAN CORPUS HGB CONC 33.8 g/dL (32.0-36.0); MEAN CORPUSCULAR HEMOGLOB 27.4 pg (26.0-34.0); MEAN CORPUSCULAR VOLUME 80.9 fL (80-100); MEAN PLATELET VOLUME 9.6 fL (9.2-13.0); MONOCYTES 6.5 %; MONOCYTES ABSOLUTE 0.67 10/3/uL (0.21-1.20); NEUTROPHILS 80.7 %; NEUTROPHILS ABSOLUTE 8.35 10/3/uL (2.02-8.40); PLATELET COUNT 182 10/3/uL (150-400); RBC DISTRIBUTION WIDTH 14.1 % (12.0-16.0); RED CELL COUNT 4.82 10/6/uL (4.7-6.1); WHITE BLOOD CELLS 10.4 10/3/uL (4.5-10.5)
[2017-02-26 11:40] LABS: MANUAL DIFF NO %
[2017-02-26 11:47] LABS: INTERNATIONAL NORMAL RATI 1.2 UNITS (-); PARTIAL THROMBO TIME 34.5 SEC (22.5-37.2); PROTIME (NOT ORD) 14.8 SEC (12.0-14.5)
[2017-02-27 06:11] LABS: BASOPHILS 0.1 %; BASOPHILS ABSOLUTE 0.01 10/3/uL (0.0-0.16); EOSINOPHILS 2.6 %; EOSINOPHILS ABSOLUTE 0.26 10/3/uL (0.0-0.53); HEMATOCRIT 37.5 % (40.0-51.0); HEMOGLOBIN 12.8 g/dL (13.6-17.8); IMMATURE GRANULOCYTES 0.3 %; IMMATURE GRANULOCYTES ABSOLUTE 0.03 10/3/uL (0.0-0.11); LYMPHOCYTES 9.9 %; LYMPHOCYTES ABSOLUTE 0.97 10/3/uL (0.67-4.30); MEAN CORPUS HGB CONC 34.1 g/dL (32.0-36.0); MEAN CORPUSCULAR HEMOGLOB 27.6 pg (26.0-34.0); MEAN PLATELET VOLUME 9.8 fL (9.2-13.0); MONOCYTES 7.3 %; MONOCYTES ABSOLUTE 0.72 10/3/uL (0.21-1.20); NEUTROPHILS 79.8 %; NEUTROPHILS ABSOLUTE 7.85 10/3/uL (2.02-8.40); PLATELET COUNT 186 10/3/uL (150-400); RBC DISTRIBUTION WIDTH 13.9 % (12.0-16.0); RED CELL COUNT 4.63 10/6/uL (4.7-6.1); WHITE BLOOD CELLS 9.8 10/3/uL (4.5-10.5)
[2017-02-27 06:12] LABS: MANUAL DIFF NO %
[2017-02-27 06:21] LABS: BUN (BLOOD UREA NITROGEN) 12 MG/DL (6-23); CALCIUM, SERUM 9.2 MG/DL (8.5-10.4); CHLORIDE, SERUM 104 MMOL/L (96-112); CO2 (CARBON DIOXIDE) 24 MMOL/L (24-34); GFR AFRICAN AMERICAN 96 ML/MIN (>=60); GFR NON AFRICAN AMERICAN 83 ML/MIN (>=60); GLUCOSE, SERUM 98 MG/DL (60-99); POTASSIUM, SERUM 4.1 MMOL/L (3.5-5.3); SODIUM, SERUM 138 MMOL/L (135-148)
[2017-02-28] MEDS ORDERED: PROVHFA INH (13:52)
[2017-02-28] MEDS ORDERED: OXYIR5 MG PO (13:53)
[2017-02-28] MEDS ORDERED: SPIRIVA RESPIMAT INH (13:53)
[2017-02-28] MEDS ORDERED: LOP25 PO (13:54)
[2017-02-28] MEDS ORDERED: CORDARONE PO (13:55)
[2017-07-01] MEDS ORDERED: PR25 PO (15:02)
[2017-07-01] MEDS ORDERED: MARI2.5 PO (15:07)
[2017-07-22] MEDS ORDERED: IVVIBRA (13:26)
== END 2017-02-28 14:16 | disposition home or self-care (01) | DRG 271 ==
LOC: 4EA 11:13 → SDC/OF 13:57 → 5NO 18:58
PROVIDERS: Internal Medicine; Internal Medicine Cardiovascular Disease; Nurse Practitioner Family; Thoracic Surgery (Cardiothoracic Vascular Surgery)
PROC: 3E0T3BZ Introduction of Anesthetic Agent into Peripheral Nerves and Plexi, Percutaneous Approach (ICD-10-PCS; 2017-02-21)
PROC: 0BBJ8ZX Excision of Left Lower Lung Lobe, Via Natural or Artificial Opening Endoscopic, Diagnostic (ICD-10-PCS; 2017-02-21)
PROC: 0W9D00Z Drainage of Pericardial Cavity with Drainage Device, Open Approach (ICD-10-PCS; principal; 2017-02-21 14:15)
PROC: 02BN0ZX Excision of Pericardium, Open Approach, Diagnostic (ICD-10-PCS; 2017-02-21 14:15)
PROC: 0DB58ZX Excision of Esophagus, Via Natural or Artificial Opening Endoscopic, Diagnostic (ICD-10-PCS; 2017-02-25)
PROC: 07B74ZX Excision of Thorax Lymphatic, Percutaneous Endoscopic Approach, Diagnostic (ICD-10-PCS; 2017-02-26 13:30)
PROC: 0BB78ZX Excision of Left Main Bronchus, Via Natural or Artificial Opening Endoscopic, Diagnostic (ICD-10-PCS; 2017-02-26 13:30)
DX: I31.3 Pericardial effusion (noninflammatory) (principal); C34.92 Malignant neoplasm of unspecified part of left bronchus or lung; N17.9 Acute kidney failure, unspecified; J90 Pleural effusion, not elsewhere classified; C77.1 Secondary and unspecified malignant neoplasm of intrathoracic lymph nodes; C78.7 Secondary malignant neoplasm of liver and intrahepatic bile duct; J44.9 Chronic obstructive pulmonary disease, unspecified; E44.1 Mild protein-calorie malnutrition; K22.2 Esophageal obstruction; I10 Essential (primary) hypertension; R13.12 Dysphagia, oropharyngeal phase; I48.0 Paroxysmal atrial fibrillation; I25.10 Atherosclerotic heart disease of native coronary artery without angina pectoris; Z68.22 Body mass index [BMI] 22.0-22.9, adult; Z87.891 Personal history of nicotine dependence
CPT/HCPCS: 36415; 71010; 71020; 80048; 80053; 83036; 83735; 84100; 84439; 84443; 85025; 85610; 85730; 86850; 86900; 86901; 87015; 87070; 87075; 87102; 87116; 87205; 88112; 88172; 88173; 88305; 88333; 88344; 93005; 93312; 93320; 93325; 94640; A9270-GY; C1725; C9113; J0282; J0690; J2250; J2370; J2405; J2710; J2795; J3010

== ENCOUNTER 2017-03-18 11:51 | Inpatient (IN) | payer OTHER ==
--- NOTE | ~2017-03-18 | HP ---
History And Physical [place] [address] [place]. [address] NAME: ANKUR TRIMBLE : 42 STATUS : ADM IN [facility]#: [id number] AGE: 76 ADM/REG DATE : 03/18/17 MR#: [id number] REPORT SERV DATE: 03/18/17 DICTATED BY: FLORI PARADA II DATE: 03/18/17 REPORT STATUS : Draft TRANSCRIBED BY: MODL DATE: 03/18/17 DATE OF ADMISSION: 03/18/2017 PRIMARY ONCOLOGIST: Dr. Forman. RADIATION ONCOLOGIST: Dr. Lennon. HISTORY OF PRESENT ILLNESS: The patient is a 76-year-old male with a history of recently diagnosed metastatic lung squamous cell carcinoma, now on chemo and radiation as well as an ulcerated esophageal stricture unamenable to dilatation with dysphagia now to even liquids, who presented to [facility] for placement of PEG tube. The patient was discharged, 02/28/2017 and at that point in time he was still able to get down Ensure, though no solids. Given that fact, Dr. Estevez recommended to defer surgery unless he absolutely needs it and not tolerating Ensure. Over the last few weeks, the patient has started chemo and radiation, but now completely unable to keep down even liquids before they are regurgitated. He has been into the office several times requiring IV fluids and currently Dr. Forman spoke with Dr. Estevez and the plan is to admit for PEG tube placement and initiation of tube feeds. Otherwise, the patient denies any other complaints. Denies any nausea, vomiting, chest pain, shortness of breath. Denies any diarrhea, melena, or hematochezia. REVIEW OF SYSTEMS: 10-point review of systems is otherwise negative except for HPI. PAST MEDICAL HISTORY: 1. Metastatic squamous cell carcinoma of the lung followed by Dr. Forman on chemo and radiation. 2. 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 3. Paroxysmal atrial fib, not on anticoagulation. 4. Recent pericardial effusion with window. 5. Coronary artery disease, status post stent. PAST SURGICAL HISTORY: 1. Pericardial window recently as per above. 2. Stent placed in 1998. SOCIAL HISTORY: He was a previous smoker, although does not actively smoke. He is and denies any significant alcohol or drug use. HOME MEDICATIONS: Vitamin E, vitamin C, vitamin D, aspirin, pravastatin, albuterol, Spiriva, Percocet, Lopressor, amiodarone. FAMILY HISTORY: Significant for lung cancer. ALLERGIES: NO KNOWN DRUG ALLERGIES. History And Physical [address] [address] NAME: ANKUR TRIMBLE : 42 STATUS : ADM IN [facility]#: [id number] AGE: 76 ADM/REG DATE : 03/18/17 MR#: [id number] REPORT SERV DATE: 03/18/17 DICTATED BY: FLORI PAARDA II DATE: 03/18/17 REPORT STATUS : Draft TRANSCRIBED BY: JORDNA DATE: 03/18/17 PHYSICAL EXAMINATION: VITAL SIGNS: Blood pressure 167/77, temperature 97.5, pulse 99, respirations 18, O2 saturation 96% on room air. GENERAL: The patient is alert and oriented x3, in no acute distress. NECK: Supple. Nontender. No lymphadenopathy or thyromegaly. HEENT: Moist mucous membranes. Pupils equal, round, and reactive to light. Conjunctivae clear. RESPIRATORY: Lungs are clear to auscultation bilaterally. No wheezes, rhonchi, or rales. CARDIOVASCULAR: Regular rate and rhythm. No murmurs, rubs, or gallops. ABDOMEN: Soft, nontender, nondistended. Normoactive bowel sounds. EXTREMITIES: No cyanosis, clubbing, or edema. SKIN: No lesions, rashes, or wounds. NEURO: No focal deficits. LABORATORY DATA: Pending. ASSESSMENT AND PLAN: The patient is a 76-year-old male with: 1. Metastatic squamous cell carcinoma of the lung followed by Dr. Forman. 2. Severe protein-calorie malnutrition. 3. Esophageal stricture unamenable to dilatation due to being ulcerated. 4. Dehydration secondary to above. 5. Paroxysmal atrial fibrillation. 6. Coronary artery disease. PLAN: For the above, the patient will be admitted for PEG tube placement. He will remain n.p.o. He will provide supportive care with IV fluids until Dr. Estevez can place PEG tube. The patient is a full code. ALBA Flori Parada II, MD / [id number] CC: MD Dede Barney II, Wendy A
--- NOTE | ~2017-03-18 | CN ---
Consultation Report [facility] [address] [facility] [address] NAME: ANKUR TRIMBLE : 42 STATUS : ADM IN PAT#: [id number] AGE: 76 ADM/REG DATE : 03/18/17 MR#: [id number] REPORT SERV DATE: 03/20/17 DICTATED BY: RODOLFO ESTEVEZ DATE: 03/19/17 REPORT STATUS : Draft TRANSCRIBED BY: MODL DATE: 03/19/17 CONSULTATION/FOLLOWUP NOTE DATE OF CONSULTATION: 03/19/2017 HISTORY OF PRESENT ILLNESS: I saw Mr. Trimble in followup today at the request of Dr. Forman, his oncologist. He is an unfortunate 76-year-old man with stage IV squamous cell carcinoma of the lung with lymphadenopathy, so severe it is compressing his esophagus. I saw him during his last hospitalization. Please see my prior consultation note from couple of weeks ago. In any case, he improved enough to swallow and was discharged, but now on treatment, is unable to swallow even liquids. I am consulted to provide enteral nutrition. PAST MEDICAL HISTORY: Please see the admitting history and physical. PAST SURGICAL HISTORY: Please see the admitting history and physical. SOCIAL HISTORY: Please see the admitting history and physical. FAMILY HISTORY: Please see the admitting history and physical. ALLERGIES: PLEASE SEE THE ADMITTING HISTORY AND PHYSICAL. MEDICATIONS: Please see the admitting history and physical. REVIEW OF SYSTEMS: Please see the admitting history and physical. PHYSICAL EXAMINATION: HEENT: Normocephalic, atraumatic. NECK: Supple. No carotid bruits are noted. No cervical adenopathy. CHEST: Clear to auscultation bilaterally. HEART: Regular rate and rhythm. No murmurs, rubs, or gallops are auscultated. ABDOMEN: Soft and nontender. He has a prior extreme upper midline incision from his pericardial window. The rest of his abdomen is soft. EXTREMITIES: Warm, well-perfused without edema. NEUROLOGIC: No focal neurologic deficits are noted on gross exam. He is somewhat cachectic. IMAGING: None. LABORATORY DATA: Labs have been reviewed. His white blood cell count was normal despite one round of chemotherapy. ASSESSMENT: Need for enteral access. PLAN: I will take the patient to the operating room to perform open gastrostomy tube versus Consultation Report [facility] [address] [place]. [address] NAME: ANKUR TRIMBLE : 42 STATUS : ADM IN PAT#: [id number] AGE: 76 ADM/REG DATE : 03/18/17 MR#: [id number] REPORT SERV DATE: 03/20/17 DICTATED BY: RODOLFO ESTEVEZ DATE: 03/19/17 REPORT STATUS : Draft TRANSCRIBED BY: MODL DATE: 03/19/17 jejunostomy tube placement. The patient understands the risk of bleeding, infection, damage to intraabdominal structures, complications of the tube requiring replacement, repositioning for further procedures, and the risk of anesthetic agents. He verbalizes willingness to proceed. ECN/JORDAN Rodolfo Estevez MD / [id number] CC: Marina aMyen MD
--- NOTE | ~2017-03-18 | DS ---
Discharge Summary [facility] [address] [place]. [address] NAME: ANKUR TRIMBLE : 42 STATUS : ADM IN [facility]#: [id number] AGE: 76 ADM/REG DATE : 03/18/17 MR#: [id number] REPORT SERV DATE: 03/21/17 DICTATED BY: BRUCE JENKINS DATE: 03/21/17 REPORT STATUS : Draft TRANSCRIBED BY: MODL DATE: 03/21/17 ADMISSION DATE: 03/18/2017 DISCHARGE DATE: 03/21/2017 DISCHARGE DIAGNOSES: 1. Esophageal compression due to enlarged adenopathy from lung cancer. 2. Metastatic squamous cell carcinoma of the lung. 3. Paroxysmal atrial fibrillation. 4. Coronary artery disease. 5. Hypertension. 6. Recent pericardial effusion with a window. CONSULTANTS DURING THIS HOSPITALIZATION: 1. Amandeep Forman MD of Hematology-Oncology. 2. Mohan Estevez MD of General Surgery. INVASIVE PROCEDURES DONE DURING THIS HOSPITALIZATION: Placement of an open gastrostomy tube through surgical intervention. BRIEF HISTORY OF PRESENT ILLNESS: The patient is a 76-year-old male with metastatic lung squamous cell carcinoma on chemoradiation came in with an esophageal compression and ulceration and unable to take in p.o. So, he was admitted. For detailed history and physical exam, please see note dictated by Dr. Lucas Nance on 03/18/2017. HOSPITAL COURSE: After being admitted to the hospital, this patient was evaluated for the external compression and it seemed like it was due to large adenopathy. An endoscopic PEG tube was not possible. So, Dr. Estevez was consulted. Dr. Estevez took the patient to the operating room and placed an open gastrostomy tube. Post placement, this patient was started on tube feedings, and he is tolerating his tube feedings. He remained stable. Otherwise, Dr. Forman continued to follow the patient, did not have any other recommendations, and he is to be followed up again in the office. He continued his radiation therapy during this hospital stay as well. He remained stable and is being discharged in stable condition. DISCHARGE DISPOSITION: Home. DISCHARGE ACTIVITY: As tolerated. DISCHARGE DIET: Per PEG, Isosource, continuous tube feeds. DISCHARGE MEDICATIONS: Pravastatin 40 mg once daily; albuterol two puffs every four hours; Spiriva Respimat 2 puffs daily; oxycodone 5/325 one to two tablets every 24 hours; Lopressor 12.5 mg twice daily; amiodarone 200 mg once daily; and Zofran 8 mg p.o. three times daily p.r.n. DISCHARGE FOLLOWUP: With Dr. Amandeep Forman as previously scheduled with Dr. Lennon in the Discharge Summary [address] [address] NAME: ANKUR TRIMBLE : 42 STATUS : ADM IN PAT#: [id number] AGE: 76 ADM/REG DATE : 03/18/17 MR#: [id number] REPORT SERV DATE: 03/21/17 DICTATED BY: BRUCE JENKINS DATE: 03/21/17 REPORT STATUS : Draft TRANSCRIBED BY: JORDAN DATE: 03/21/17 [facility] and with Dr. Elsy Aguayo as needed. More than 30 minutes spent planning this patient's discharge, reconciling medications, writing prescriptions, discussing hospital care, and follow up with the patient, arranging tube feedings appropriately and documenting this discharge. CHOLO/JORDAN Bruce Jenkins M.D. / [id number] CC: Marina Mayen MD Jonathan T Whaley, MD
--- NOTE | ~2017-03-18 | OP ---
Record Of Operation [facility] [address] [facility] [place]. [address] NAME: ANKUR TRIMBLE : 42 STATUS : ADM IN PAT#: [id number] AGE: 76 ADM/REG DATE : 03/18/17 MR#: [id number] REPORT SERV DATE: 03/20/17 DICTATED BY: RODOLFO ESTEVEZ DATE: 03/19/17 REPORT STATUS : Draft TRANSCRIBED BY: MODL DATE: 03/19/17 DATE OF PROCEDURE: PREOPERATIVE DIAGNOSES: 1. Squamous cell carcinoma of the lung. 2. Esophageal obstruction. POSTOPERATIVE DIAGNOSES: 1. Squamous cell carcinoma of the lung. 2. Esophageal obstruction. PROCEDURE: Open gastrostomy tube placement. SURGEON: Rodolfo Estevez MD. RESIDENT DOCTOR: Nacho Da Silva MD ANESTHESIA: General. ESTIMATED BLOOD LOSS: Less than 10 mL. IV FLUIDS: Approximately 1000 mL crystalloid. SPECIMEN: None. DRAINS: An 18-Italian G tube was placed into the stomach and brought out transabdominally in left upper quadrant. COMPLICATIONS: None. INDICATIONS FOR PROCEDURE: This 76-year-old male with a recent diagnosis of squamous cell carcinoma of the lung who has an enlarged lymph node that was causing the obstruction of the esophagus. The patient needed an enteral feeding route; therefore, he was offered the open gastrostomy tube placement. Risks, benefits, and alternatives were explained to the patient. The patient expressed clear verbal understanding and wished to proceed forward with this elective procedure. DESCRIPTION OF PROCEDURE: After informed consent was obtained, the patient was taken back the operation theater. The patient was in the operating table in the supine position. The patient was given adequate analgesia and anesthesia and successfully endotracheally intubated. Surgery site was then prepped and draped in a standard fashion. Appropriate preoperative antibiotics were administered. All present in the operating room were in agreement, and we elected to proceed forward with this procedure. It began by making midline incision, approximately 5 cm in length, vertical in the midline supraumbilically, and then used electrocautery to dissect down to the anterior abdominal wall fascia, which was incised with electrocautery. Peritoneum was grasped with hemoclips x2 and sharply Record Of Operation [facility] [address] [facility] [place]. [address] NAME: ANKUR TRIMBLE : 42 STATUS : ADM IN PAT#: [id number] AGE: 76 ADM/REG DATE : 03/18/17 MR#: [id number] REPORT SERV DATE: 03/20/17 DICTATED BY: RODOLFO ESTEVEZ DATE: 03/19/17 REPORT STATUS : Draft TRANSCRIBED BY: JORDAN DATE: 03/19/17 incised, gained entry into the abdominal cavity. We opened the fascia skin incision site with electrocautery. We then were able to grasp the stomach with a Rosa and bring it to the midline incision site. We then walked a series of Bacocks up until we had one Andrew that was in the body of the stomach toward the greater curvature. This spot easily came up to the spot we deemed appropriate for the G-tube placement in the left upper quadrant. We then obtained an elliptical incision in the left upper quadrant and then used to pass the G tube transabdominally through the wall of the left upper quadrant incision site. we then placed the inner pursestring stitch around where the Rosa closed with a 3-0 silk suture. We then placed a second pursestring suture on the outside of the region of the first with a 3-0 Vicryl suture. Andrew was removed. Electrocautery was used to make a gastrotomy, where Rosa clamp used to be, gained entrance into the stomach lumen, placed the G tube into the lumen, insufflated the balloon on the G-tube with saline solution. We then tied down our inner pursestring stitch which was soaked and then dunked this pursestring in and imbricated it by then tying down the 3-0 Vicryl pursestring stitch. It imbricated very well. We then used 3-0 Vicryl and Pexyde from the stomach to the anterior abdominal wall at four points, the stomach some Pexyde to the anterior abdominal wall. The flange was put down and it was easily secured. We then reapproximated the fascia over midline with #1 looped PDS in simple running fashion. Fascia was reapproximated very well. We then reapproximated our skin incision site with 4-0 Monocryl in a simple subcuticular stitch running fashion. Skin was reapproximated well, and hemostasis noted to have been achieved. Sterile dressings were applied. The gastrostomy tube was to be left to gravity for six hours for the remainder of the day and tomorrow. Primary team to start to feeding the patient. Local anesthetic was administered near the incision site. Sterile dressings were applied, and then we broke down sterile drapes. The patient was reversed from anesthesia. He was extubated in the operating room. The patient is awake. Vital signs are stable. The patient was transferred to recovery room in stable condition. DICTATED BY: MD KATEY Rendon/MODYue Rodolfo Estevez MD / [id number] CC: Marina Mayen WENDY A
[~2017-03-18 11:51] MED LIST changes: +ASABAYER PO; +CORDARONE PO; +LOP25 PO; +OXYIR5 MG PO; +PROVHFA INH; +SPIRIVA RESPIMAT INH; +VITAMIN D1000 UNI1 PO
[2017-03-18] MEDS ORDERED: ZOFRANODT8 PO (15:21)
[2017-03-18] MEDS ORDERED: COMP10B PO (15:21)
[2017-03-18 17:36] LABS: BASOPHILS 0.1 %; BASOPHILS ABSOLUTE 0.01 10/3/uL (0.0-0.16); EOSINOPHILS 0.4 %; EOSINOPHILS ABSOLUTE 0.04 10/3/uL (0.0-0.53); HEMATOCRIT 37.4 % (40.0-51.0); HEMOGLOBIN 12.2 g/dL (13.6-17.8); IMMATURE GRANULOCYTES 0.3 %; IMMATURE GRANULOCYTES ABSOLUTE 0.03 10/3/uL (0.0-0.11); LYMPHOCYTES 6.8 %; LYMPHOCYTES ABSOLUTE 0.61 10/3/uL (0.67-4.30); MANUAL DIFF NO %; MEAN CORPUS HGB CONC 32.6 g/dL (32.0-36.0); MEAN CORPUSCULAR HEMOGLOB 27.1 pg (26.0-34.0); MEAN CORPUSCULAR VOLUME 82.9 fL (80-100); MEAN PLATELET VOLUME 10.6 fL (9.2-13.0); MONOCYTES 1.7 %; MONOCYTES ABSOLUTE 0.15 10/3/uL (0.21-1.20); NEUTROPHILS 90.7 %; PLATELET COUNT 152 10/3/uL (150-400); RBC DISTRIBUTION WIDTH 13.9 % (12.0-16.0); RED CELL COUNT 4.51 10/6/uL (4.7-6.1); WHITE BLOOD CELLS 8.9 10/3/uL (4.5-10.5)
[2017-03-18 17:57] LABS: A/G RATIO 0.8 (0.7-1.9); ALBUMIN 3.1 G/DL (3.5-5.0); ALKALINE PHOSPHATASE 68 U/L (45-117); BUN (BLOOD UREA NITROGEN) 24 MG/DL (6-23); CHLORIDE, SERUM 113 MMOL/L (96-112); CO2 (CARBON DIOXIDE) 29 MMOL/L (24-34); CREATININE 1.07 MG/DL (0.70-1.30); GFR AFRICAN AMERICAN 78 ML/MIN (>=60); GFR NON AFRICAN AMERICAN 68 ML/MIN (>=60); GLOBULIN 3.9 G/DL (2.5-4.1); GLUCOSE, SERUM 97 MG/DL (60-99); SGOT(AST) 26 U/L (5-40); SGPT(ALT) 16 U/L (5-65); SODIUM, SERUM 146 MMOL/L (135-148); TOTAL BILIRUBIN 0.7 MG/DL (0-1.2)
[2017-03-20 04:02] LABS: BASOPHILS 0 %; EOSINOPHILS 0.8 %; EOSINOPHILS ABSOLUTE 0.03 10/3/uL (0.0-0.53); HEMOGLOBIN 9.9 g/dL (13.6-17.8); IMMATURE GRANULOCYTES ABSOLUTE 0.04 10/3/uL (0.0-0.11); LYMPHOCYTES 9.8 %; LYMPHOCYTES ABSOLUTE 0.39 10/3/uL (0.67-4.30); MEAN CORPUS HGB CONC 33.2 g/dL (32.0-36.0); MEAN CORPUSCULAR HEMOGLOB 27.2 pg (26.0-34.0); MEAN CORPUSCULAR VOLUME 81.9 fL (80-100); MEAN PLATELET VOLUME 9.6 fL (9.2-13.0); MONOCYTES 4.5 %; MONOCYTES ABSOLUTE 0.18 10/3/uL (0.21-1.20); NEUTROPHILS 83.9 %; NEUTROPHILS ABSOLUTE 3.34 10/3/uL (2.02-8.40); PLATELET COUNT 119 10/3/uL (150-400); RBC DISTRIBUTION WIDTH 13.2 % (12.0-16.0); RED CELL COUNT 3.64 10/6/uL (4.7-6.1)
[2017-03-20 04:03] LABS: HEMATOCRIT 29.8 % (40.0-51.0); MANUAL DIFF NO %
[2017-03-20 04:22] LABS: ALBUMIN 2.3 G/DL (3.5-5.0); BUN (BLOOD UREA NITROGEN) 14 MG/DL (6-23); CALCIUM, SERUM 8.2 MG/DL (8.5-10.4); CHLORIDE, SERUM 107 MMOL/L (96-112); CO2 (CARBON DIOXIDE) 28 MMOL/L (24-34); CREATININE 0.77 MG/DL (0.70-1.30); GFR AFRICAN AMERICAN 103 ML/MIN (>=60); GFR NON AFRICAN AMERICAN 89 ML/MIN (>=60); GLUCOSE, SERUM 124 MG/DL (60-99); PHOSPHORUS, SERUM 1.9 MG/DL (2.5-4.5); POTASSIUM, SERUM 3.3 MMOL/L (3.5-5.3); SODIUM, SERUM 142 MMOL/L (135-148)
[2017-07-01] MEDS ORDERED: PR25 PO (15:02)
[2017-07-01] MEDS ORDERED: MARI2.5 PO (15:07)
[2017-07-22] MEDS ORDERED: IVVIBRA (13:26)
== END 2017-03-21 18:08 | disposition home health service (06) | DRG 326 ==
LOC: 4EA 11:51
PROVIDERS: Internal Medicine; Surgery
PROC: 0DH60UZ Insertion of Feeding Device into Stomach, Open Approach (ICD-10-PCS; principal; 2017-03-19 10:45)
DX: K22.10 Ulcer of esophagus without bleeding (principal); E43 Unspecified severe protein-calorie malnutrition; C34.32 Malignant neoplasm of lower lobe, left bronchus or lung; E86.0 Dehydration; I48.0 Paroxysmal atrial fibrillation; J44.9 Chronic obstructive pulmonary disease, unspecified; I10 Essential (primary) hypertension; I25.10 Atherosclerotic heart disease of native coronary artery without angina pectoris; R13.10 Dysphagia, unspecified; Z92.3 Personal history of irradiation; Z92.21 Personal history of antineoplastic chemotherapy; Z95.5 Presence of coronary angioplasty implant and graft; Z87.891 Personal history of nicotine dependence; Z79.82 Long term (current) use of aspirin; Z79.899 Other long term (current) drug therapy; Z80.1 Family history of malignant neoplasm of trachea, bronchus and lung; E78.5 Hyperlipidemia, unspecified
CPT/HCPCS: 77336; 77386; 80053; 80069; 85025; A9270-GY; J0360; J0690; J1170; J2405; J2710; J2795; J3010